=== PATIENT | male | born 1990 | race Caucasian/White ===

== ENCOUNTER 2017-07-26 05:21 | Emergency (ER) | payer OTHER ==
[~2017-07-26] VITALS: Ht 182.9 cm; Wt 105.0 kg
[~2017-07-26 05:21] MED LIST: GABA300C10 PO; HYDR-3307 PO; METH4TAB6 PO; METH750T87 PO; MULT-658 PO; ONDA4TAB7 PO; OXYC-307 PO; ROBAXIN PO
[2017-07-26] MEDS ORDERED: ONDANSETRON 2MG/ML, 2ML ONE ×2 (05:57→07:13)
[2017-07-26] MEDS ORDERED: FAMOTIDINE 20 MG/2 ML ONE (05:57)
[2017-07-26] MEDS ORDERED: SODIUM CHLORIDE FLUSH 10ML SYR IVF ONE (06:00)
[2017-07-26] MEDS ORDERED: FAMOTIDINE 20 MG/2 ML IVP ONE (06:00)
[2017-07-26] MEDS ORDERED: ONDANSETRON 2MG/ML, 2ML IVPush ONE ×2 (06:00→07:30)
[2017-07-26] MEDS ORDERED: SODIUM CHLORIDE 0.9% 1,000ML IVBOLUS ONE (06:00)
[2017-07-26] MEDS ORDERED: cloniDINE 0.1MG PATCH TD ONE (06:00)
[2017-07-26 06:13] LABS: BASOPHILS # (AUTO) 0.01 x10^3/uL (0-0.1); BASOPHILS % (AUTO) 0 % (0-1); EOSINOPHILS # (AUTO) 0.01 x10^3/uL (0-0.4); EOSINOPHILS % (AUTO) 0 % (1-7); LYMPHOCYTES # (AUTO) 1.02 x10^3/uL (1-3.4); LYMPHOCYTES % (AUTO) 11 % (22-44); MD NO; MEAN CORPUSCULAR HEMOGLOBIN 31.3 pg (27.5-34.5); MEAN CORPUSCULAR HGB CONC 33.8 g/dL (33.2-36.2); MEAN CORPUSCULAR VOLUME 92.5 fL (81-97); MONOCYTES % (AUTO) 6 % (2-9); NEUTROPHILS # (AUTO) 7.45 x10^3/uL (1.8-6.8); NEUTROPHILS % (AUTO) 83 % (42-75); PLATELET COUNT 322 x10^3/uL (130-400); RED BLOOD COUNT 4.71 x10^6/uL (4.38-5.82); RED CELL DISTRIBUTION WIDTH 14.1 % (9.4-14.8)
[2017-07-26 06:26] LABS: ALANINE AMINOTRANSFERASE 69 U/L (12-78); ALBUMIN 4.1 g/dL (3.4-5.0); ANION GAP 7 mmol/L (5-15); CALCIUM 9.8 mg/dL (8.5-10.1); CHLORIDE 103 mmol/L (98-107); CREATININE 1.15 mg/dL (0.7-1.3)
[2017-07-26 06:28] LABS: ALKALINE PHOSPHATASE 62 U/L (45-117); BILIRUBIN,TOTAL 0.7 mg/dL (0.2-1.0); TOTAL PROTEIN 7.6 g/dL (6.4-8.2)
[2017-07-26 07:15] VITALS: BP 151/74
== END 2017-07-26 07:33 | disposition home or self-care (01) ==
LOC: ED 05:49
DX: F10.129 Alcohol abuse with intoxication, unspecified (principal); F11.23 Opioid dependence with withdrawal; R19.7 Diarrhea, unspecified; R11.2 Nausea with vomiting, unspecified
CPT/HCPCS: 36415; 80053; 83690; 85025; 96361; 96374; 96375; 96376; 99284; J2405; J7030; Q0177; S0028

== ENCOUNTER 2018-12-29 23:28 | Emergency (ER) | payer SELFPAY ==
[~2018-12-29] VITALS: Ht 182.9 cm; Wt 105.0 kg
[2018-12-29] MEDS ORDERED: HYDROcodone/APAP 5/325 TABLET ONE (23:56)
[2018-12-29] MEDS ORDERED: KETOROLAC 30 MG/1 ML ONE (23:56)
[2018-12-30] MEDS ORDERED: KETOROLAC 30 MG/1 ML IM ONE
[2018-12-30] MEDS ORDERED: HYDROcodone/APAP 5/325 TABLET PO ONE
--- NOTE | 2018-12-30 00:17 | NUR ---
Pt requesting MRI, pt educated on ED process and orders recieved up to this point. Pt agrees to plan, (meds, xray, recheck), denies any needs/concerns.
--- NOTE | 2018-12-30 01:07 | NUR ---
received report from NITZA Villanueva. ERP at bedside for re-evaluation.
--- NOTE | 2018-12-30 01:16 | NUR ---
re-evaluation done. patient discharged with prescriptions and instruction. verbalized understanding.
[2018-12-30 01:17] VITALS: BP 123/78
== END 2018-12-30 01:30 | disposition home or self-care (01) ==
LOC: ED 23:59
DX: S39.012A Strain of muscle, fascia and tendon of lower back, initial encounter (principal); M54.42 Lumbago with sciatica, left side; X58.XXXA Exposure to other specified factors, initial encounter; Y93.89 Activity, other specified; Y92.89 Other specified places as the place of occurrence of the external cause; Y99.8 Other external cause status
CPT/HCPCS: 72110; 96372; 99283; J1885; J7512